=== PATIENT | male | born 1980 | race Caucasian/White ===

== ENCOUNTER 2016-09-17 10:53 | Emergency (ER) | payer OTHER ==
[~2016-09-17] VITALS: Ht 180.3 cm; Wt 85.0 kg
[~2016-09-17 10:53] MED LIST: LISI-360 PO
[2016-09-17 10:55] VITALS: BP 140/104; PULSE 124; RESP 14; TEMP 98.1; O2SAT 99
--- NOTE | 2016-09-17 11:33 | PD ---
HPI Chief Complaint: Injury Time Seen by Provider: 11:32 Travel History International Travel<30 days: No Contact w/Intl Traveler<30days: No Traveled to known affect area: No History of Present Illness HPI 36-year-old male with PMH of HTN, T2 DM presents to the ED for evaluation of a 3 day history of left-sided shoulder pain. Patient states that he injured the rotator cuff and the same arm "10-15 years ago." He states that he woke up 2 days ago with persistent 6/10 pain, worsened by certain motions. Alleviated by lying with has arm over his head. He denies known trauma or recent overuse. He endorses chronic intermittent numbness of the third and fourth digits, no worse today. He denies limitations to range of motion, loss of strength, warmth of the joint. He states that he was treated by the chiropractor today with cold laser therapy with no improvement of symptoms. He also took thousand milligrams of ibuprofen last night. Denies chest pain, palpitations, shortness of breath, nausea/vomiting or diaphoresis. PFSH Past Medical History Diabetes: Yes Diverticulitis: Yes Hypertension: Yes Social History Alcohol Use: No Tobacco Use: No Allergies-Medications (Allergen,Severity, Reaction): Coded Allergies: No Known Allergies (Unverified , 09/17/16) Reported Meds & Prescriptions Reported Meds & Active Scripts Active Ibuprofen 800 Mg Tab 800 Mg PO Q8H PRN Reported Levemir Flextouch Pen Inj (Insulin Detemir) 300 unit/3 ML Pen 1 Units SQ Lisinopril 20 Mg Tab 20 Mg PO DAILY Review of Systems Except as stated in HPI: all other systems reviewed are Neg Physical Exam Narrative GENERAL: Well-nourished, well-developed nontoxic appearing white male in no acute distress. SKIN: Warm and dry. HEAD: Normocephalic. EYES: No scleral icterus. No injection or drainage. NECK: Supple, trachea midline. No JVD or lymphadenopathy. CARDIOVASCULAR: Regular rate and rhythm without murmurs, gallops, or rubs. RESPIRATORY: Breath sounds equal bilaterally. No accessory muscle use. GASTROINTESTINAL: Abdomen soft, non-tender, nondistended. MUSCULOSKELETAL: No cyanosis, or edema. 5/5 rhit strength, biceps strength and triceps strength in bilateral upper extremities. FOCUSED LEFT UPPER EXTREMITY EXAM: 2+ radial pulse. Mildly tender to palpitation of the left AC joint. Patient is able to abduct the arm to 90 and weakly flex over the head. Fingers are warm and well perfused. Sensation intact to light touch distally. BACK: Nontender without obvious deformity. No CVA tenderness. Data Data Last Documented VS Vital Signs Date Time Temp Pulse Resp B/P Pulse Ox O2 Delivery O2 Flow Rate FiO2 09/17/16 12:05 77 09/17/16 11:54 Room Air 09/17/16 10:55 98.1 14 140/104 99 Orders Acetamin-Hydrocod 325-5 Mg (Gates 5-325 (09/17/16 12:00) MDM Medical Decision Making Medical Screen Exam Complete: Yes Emergency Medical Condition: Yes Differential Diagnosis Tendinitis versus rotator cuff injury versus less likely fracture versus other Narrative Course 36-year-old male with PMH of HTN, T2 DM presents to the ED for evaluation of a 3 day history of left-sided shoulder pain. Patient states that he injured the rotator cuff in the same arm "10-15 years ago." He states that he woke up 2 days ago with persistent 6/10 pain, worsened by certain motions. Alleviated by lying with has arm over his head. He endorses chronic intermittent numbness of the third and fourth digits, no worse today. He denies limitations to range of motion, loss of strength, warmth of the joint, chest pain, palpitations, shortness of breath, nausea/vomiting or diaphoresis. Vitals reviewed. The patient was initially tachycardic and triage but this resolves during the course of evaluation Physical exam reveals mild tenderness to palpation of the before meals joint, no limitations to range of motion, neurovascularly intact in the left upper arm. I don't think x-rays are required at this time since the patient denies any acute trauma. This is a likely exacerbation of the old rotator cuff injury. Patient was given a single dose of Lortab, instructed to follow-up with his primary care provider for outpatient MRI. He was prescribed a short course of anti-inflammatory medications, we discussed symptomatic treatment. He indicated understanding of the instructions, is amenable to plan of care. He is stable and discharged home. Diagnosis Primary Impression: Unspecified injury of muscle(s) and tendon(s) of the rotator cuff of left shoulder, initial encounter Referrals: Orthopedist Primary Care Physician Patient Instructions: General Instructions, Rotator Cuff Injury (ED), Rotator Cuff Tendinitis (ED) Additional Instructions: Rest, ice, elevation of the extremity or help with throbbing pain. Take ibuprofen every 6-8 hours as needed for pain and inflammation. Limit overuse or strenuous activity with the left arm. Follow-up with the primary care provider or orthopedist for outpatient MRI. Return to the ED for any urgent or emergent medical condition. Med/Other Pt SpecificInfo: Prescription(s) given Scripts Ibuprofen 800 Mg [id number] Mg PO Q8H PRN (Pain/Inflammation) #21 TAB Ref 0 Prov:Norma Sam MD 09/17/16 Disposition: 01 DISCHARGE HOME Condition: Stable Lizeth Rinaldi Sep 17, 2016 11:33
[2016-09-17] MEDS ORDERED: INSU1INJ5 SQ (11:53)
[2016-09-17] MEDS ORDERED: LISI-515 PO (11:53)
[2016-09-17] MEDS ORDERED: IBUP800T23 PO (11:56)
[2016-09-17] MEDS ORDERED: ACETAMINOPHEN/HYDROcodone 325 MG/5 MG TAB PO ONE (12:00)
[2016-09-17 12:05] VITALS: PULSE 77
== END 2016-09-17 12:14 | disposition home or self-care (01) ==
LOC: NETRI 10:53
DX: M25.512 Pain in left shoulder (principal); R20.0 Anesthesia of skin; I10 Essential (primary) hypertension; E11.9 Type 2 diabetes mellitus without complications; Z87.828 Personal history of other (healed) physical injury and trauma
CPT/HCPCS: 99283